=== PATIENT | female | born 1975 | race Caucasian/White ===

== ENCOUNTER → 2016-08-05 | Outpatient (CLI) | payer BC ==
--- NOTE | 2016-08-05 09:52 | KCIC ---
PROCEDURE Complete pelvic ultrasound. HISTORY Frequent menses. TECHNIQUE Real-time ultrasound imaging of the pelvis using transabdominal and transvaginal windows is performed. COMPARISON None. FINDINGS Ovaries are not seen transabdominally. The uterus measures 10.2 x 5.2 x 6.6 cm. Anteverted uterus. Multiple nabothian cysts are identified. Largest measures 1.5 x 1.1 x 1.2 cm. The endometrial stripe transvaginally measures 14 millimeters. This is upper limits of normal. There is normal blood flow in the ovaries. Limited visualization of the ovaries. The right ovary measures 3.2 x 1.9 x 3.5 cm. Left ovary measures 2.8 x 1.8 x 2.2 cm. No cul-de-sac free fluid is identified. No evidence of adnexal mass. IMPRESSION 1. Endometrial stripe thickness is upper limits of normal. 2. There are multiple nabothian cysts. 3. Normal blood flow in the ovaries. Electronically signed by: Chris Vo MD (Aug 05, 2016 09:51:03)
== END | disposition home or self-care (01) ==
LOC: KCIC US 07:45
PROVIDERS: ATTEND Nurse Practitioner Family
DX: N92.0 Excessive and frequent menstruation with regular cycle (principal); N88.8 Other specified noninflammatory disorders of cervix uteri
CPT/HCPCS: 76830; 76856

== ENCOUNTER → 2017-10-23 | Outpatient (CLI) | payer BC | END | disposition home or self-care (01) | LOC: MAMMO 12:42 | DX: N64.4 Mastodynia (principal) | CPT/HCPCS: 76641; 77066; G0279 ==